=== PATIENT | male | born 1950 | race African-American/Black ===

== ENCOUNTER 2019-10-07 16:42 | Inpatient (IN) | payer MEDICARE, OTHER ==
[~2019-10-07] VITALS: Ht 182.9 cm; Wt 131.0 kg
[~2019-10-07 16:42] MED LIST: ALEVE 220MG220 MG PO; ASPIRIN 32325 MG/TAB PO; B-1100 MG PO; COREG12.5 MG PO; COUMADIN4 MG PO; FOLIC ACID 40400 MCG PO; HCTZ 25MG TAB25 MG PO; IRON65 M1 PO; MULTIPLE VITAMI1 CAP PO; NORCO 325 MG-7.1 TAB PO; NORVASC 5MG5 MG/TAB PO; ROXICODONE 55 MG/TAB PO; SENOKOT8.6 MG PO; TYLENOL 325MG325 MG PO; TYLENOL EXTRA500 M1 PO; VITAMIN C500 MG PO; ZYLOPRIM 100MG100 MG PO
[2019-11-30] VITALS (10 sets, daily range): BP systolic 106–134; BP diastolic 54–72; PULSE 57–81; TEMP 98–99.1
[2019-11-30] MEDS ORDERED: FERROUS SU325 MG/TAB PO (02:51)
[2019-11-30] MEDS ORDERED: CRESTOR 10MG10 MG PO (02:52)
[2019-11-30] MEDS ORDERED: NATURAL C500 MG PO (02:52)
[2019-11-30] MEDS ORDERED: VITAMIN D 50,1.25 MG PO (02:53)
--- NOTE | 2019-11-30 11:38 | NUR ---
PT TO ROOM 329 PER BED WITH REPORT FROM HOA GODINEZ PACU @ 1110. PT IS DROWSEY BUT AROUSEABLE. LUNGS CLEAR, VSS, DRESSING TO RIGHT HIP CDI WITH OCCLUSIVE TO HIP. SCDS TEDS BILATERALLY, DESIR CATH TO DD WITH CLEAR YELLOW URINE.
--- NOTE | 2019-11-30 16:53 | NUR ---
LIZZETH met with the patient and his , Jammie (ph#[phone]), to discuss discharge plan. The patient lives in [place] with his . He reports independence with ADLs and has a cane and rolaider. The patient receives primary care and his medications at [facility]. He reports no difficulties obtaining his meds. The patient does not have advanced directives completed, but him and his were interested in obtaining a form for DPOA-HC. LIZZETH provided. The patient plans to return home with his and receive outpatient therapy at [facility] upon discharge. No additional needs at this time.
[2019-12-01] VITALS: BP 94/57; PULSE 75; TEMP 98
--- NOTE | 2019-12-01 00:53 | NUR ---
Patient noted to be able to wiggle legts at beginning of the shift. Call not too long after and stated he couldn't handle the pain anymore. PRN Morphine administered. Patient states this is not effective. Attempted to stand up at the side of the bed and would get very dizzy and light headed. Patient stood up beside the bed x2 with staff. Patient stated that sitting at the side of the bed gave him the most pain relief. PRN Toradol administered. This was noted to be effective as patient was asleep upon reassessment. Patient awoke for evening medications and stated his pain was 8/10, but fell back to sleep. Scheduled Tylenol given. Aquacel to right hip CDI. IVF continue to right hand. Patient currently asleep. Will continue to monitor.
[2019-12-01 05:03] VITALS: BP 93/55; PULSE 80; TEMP 98
--- NOTE | 2019-12-01 07:15 | NUR ---
REPORT FROM CARLEY GODINEZ.
[2019-12-01 07:32] LABS: HEMATOCRIT 37.5 % (42.0-52.0); HEMOGLOBIN 12.1 g/dl (13.5-18.0)
[2019-12-01 08:15] VITALS: BP 98/58; PULSE 63; TEMP 97.8
--- NOTE | 2019-12-01 09:15 | NUR ---
PT SLEEPY REPORTING DID NOT SLEEP WELL PAIN MEDS GIVEN ORDERED. DRESSING TO RIGHT HIP CDI.
[2019-12-01 12:10] VITALS: BP 92/46; PULSE 64; TEMP 97.4
--- NOTE | 2019-12-01 12:57 | NUR ---
First visit from the fisher seal. No needs right now.
--- NOTE | 2019-12-01 14:00 | NUR ---
HOLDING BP MED D/T HYPOTENSION. 92/46
[2019-12-01 17:10] VITALS: BP 106/48; PULSE 70; TEMP 97.8
--- NOTE | 2019-12-01 20:20 | NUR ---
Pt got up and voided about 200cc after pereira pulled. Went on small walk. Tolerated well. Currently resting in bed. Aquacell to R hip CD&I. Denies needs. Call light within reach, will continue to monitor
[2019-12-01 20:48] VITALS: BP 112/55; PULSE 84; TEMP 99.1
[2019-12-02 03:47] VITALS: BP 112/54; PULSE 80; TEMP 98.7
--- NOTE | 2019-12-02 04:58 | NUR ---
Pt has had uneventful night. VSS. Ambulating to bathroom x1 assist, tolerating well. Sleeping in bed. Call light within reach, will continue to monitor
--- NOTE | 2019-12-02 06:40 | NUR ---
Reported on to primary RN
--- NOTE | 2019-12-02 07:30 | NUR ---
PATIENT IS A&O. VSS. PATIENT REPORTS PAIN IS MANAGED THIS AM BUT MAY WANT SOME PAIN MEDS BEFORE THERAPY. RTH DRESSING IS CD&I WITH AQUACEL. TEDS & SCD'S TO BLE. POSITIVE PEDAL PULSES. PATIENT C/O PAIN IN HIP WITH MOVEMENT. ORDERED A REPEAT X-RAY OF HIP. PATIENT USING BEDSIDE URINAL. PT/OT CONSULTED. STUDENT NURSE WORKING WITH PATIENT TODAY, SEE STUDENT CHARTING. NO OTHER NEEDS AT THIS TIME. CALL LIGHT IN REACH.
[2019-12-02 07:44] VITALS: BP 119/50; PULSE 98; TEMP 99
--- NOTE | 2019-12-02 08:53 | NUR ---
Assessment completed. Edema to R hip noted. Dressing CDI. Pt. utilizing IS. Reported 3/10 pain. Pt. resting in bed with call light in reach. No further complaints. Will continue to monitor.
--- NOTE | 2019-12-02 09:00 | NUR ---
Pt. participated in PT at this time. Pt. stated he did not feel like he needed anything for the pain. Pain level 3/10. CMS intact. Pedal pulsed present. Will continue to monitor.
[2019-12-02 12:13] VITALS: BP 98/59; PULSE 96; TEMP 98.9
--- NOTE | 2019-12-02 13:36 | NUR ---
Reported off to primary RNNusrat.
[2019-12-02] MEDS ORDERED: NORCO 325 MG-7.1 TAB PO (13:44)
[2019-12-02] MEDS ORDERED: ASPI325T6 PO (13:44)
[2019-12-02] MEDS ORDERED: ULTRAM 50MG TAB50 MG PO (13:46)
--- NOTE | 2019-12-02 16:05 | NUR ---
PATIENT DISCHARGING HOME VIA WC TO PERSONAL VEHICLE WITH . GAVE DISCHARGE INSTRUCTIONS, PRESCRIPTIONS, AND FOLLOW UP APTS. ANSWERED ALL QUESTIONS/CONCERNS. PACKED PERSONAL BELONGINGS. PATIENT DISCHARGED.
== END 2019-12-02 16:05 | disposition home or self-care (01) | DRG 470 ==
LOC: JCC 11-30 06:08
PROVIDERS: ADMIT Orthopaedic Surgery
PROC: 0SR903A Replacement of Right Hip Joint with Ceramic Synthetic Substitute, Uncemented, Open Approach (ICD-10-PCS; principal; 2019-11-30 07:30)
DX: M16.11 Unilateral primary osteoarthritis, right hip (principal); Z68.41 Body mass index [BMI] 40.0-44.9, adult; E66.9 Obesity, unspecified; M10.9 Gout, unspecified; Z87.891 Personal history of nicotine dependence
CPT/HCPCS: A4314; A9284; C1713; C1776; J0690; J1885; J2250; J2270; J2405; J2704; J3010; J7120

== ENCOUNTER → 2019-11-19 | Outpatient (CLI) | payer MEDICARE, OTHER ==
[2019-11-19 11:33] LABS: HIV 1/2 Antibodies Non-Reactive; HIV-1p24 Antigen Non-Reactive
== END ==
LOC: COL.LAB 10:21
PROVIDERS: Orthopaedic Surgery
DX: Z01.812 Encounter for preprocedural laboratory examination (principal); M16.11 Unilateral primary osteoarthritis, right hip